=== PATIENT | male | born 1985 | race Caucasian/White ===

== ENCOUNTER 2021-06-29 16:33 | Emergency (ER) | payer SELFPAY ==
--- NOTE | ~2021-06-29 | CT_ITS ---
EXAMINATION: CT abdomen pelvis wo con DATE: 06/29/2021 19:04 INDICATION: Left flank pain. TECHNIQUE: Computed tomography (CT) of the abdomen and pelvis was performed without intravenous contr ast. The dose-length product was 400.57 mGy-cm. Automated exposure control and iterative reconstructi on technique were employed. COMPARISON: None. FINDINGS: Lung bases unremarkable. Heart size normal. No significant pleural or pericardial effusion. No significant vascular abnormality. No lymphadenopathy. The liver, spleen, pancreas, adrenal glands and kidneys are unremarkable. There is mild left periuret eral stranding. No renal/ureteral stones or hydronephrosis. Bladder is unremarkable. Nonobstructive b owel gas pattern. Colonic diverticulosis without evidence for diverticulitis. Normal appendix. No sharlene e air or free fluid. No acute osseous abnormality. IMPRESSION: 1. Mild left periureteral stranding which may be sequela of recently passed stone or ascending urinar y tract infection. Reviewed, dictated and finalized at location A. IMPRESSION: 1. Mild left periureteral stranding which may be sequela of recently passed sto ne or ascending urinary tract infection.
[2021-06-29 17:52] VITALS: BP 157/95; PULSE 85; RESP 18; TEMP 36.4; O2SAT 100
[2021-06-29 18:06] LABS: Basophils Absolute Auto 0.1 K/mm3 (0.0-0.1); Basophils Percent Auto 0.6 % (0.2-1.2); Eosinophils Absolute Auto 0.1 K/mm3 (0-0.3); Eosinophils Percent Auto 0.4 % (0-4.4); Hematocrit 46.6 % (42.0-52.0); Immature Granulocyte Absolute 0.02 K/mm3 (0.00-0.031); Immature Granulocyte Percent A 0.2 % (0-0.5); Lymphocytes Absolute Auto 1.49 K/mm3 (0.9-3.2); Lymphocytes Percent Auto 12.2 % (18.3-44.2); Mean Corpuscular HGB Conc 34.3 g/dl (32-36); Mean Corpuscular Hemoglobin 30.1 pg (26-34); Mean Corpuscular Volume 87.6 fl (80-100); Mean Platelet Volume 9.2 fl (7.4-10.4); Monocytes Absolute Auto 0.6 K/mm3 (0.1-0.6); Neutrophils Percent Auto 81.6 % (45.5-73.1); Platelet Count Result 268 k/mm3 (150-375); Red Blood Count 5.32 M/mm3 (4.6-6.20); Red Cell Distribution Width 12.7 % (11.5-14.5); White Blood Count 12.2 K/mm3 (4.5-10.0)
--- NOTE | 2021-06-29 18:21 | PC.NURSE ---
Xray here to take pt, but pt is not in waiting room.
--- NOTE | 2021-06-29 18:24 | PC.NURSE ---
Pt back into ED
[2021-06-29 18:38] LABS: Add Urine Microscopic? YES; Amorphous Sediment Urine Few; Appearance Urine Cloudy (Clear); Bilirubin Urine Negative (Negative); Blood Urine Negative (Negative); Color Urine Yellow (Yellow); Glucose Urine UA Negative (Negative); Ketones Urine Negative (Negative); Leukocyte Esterase Ur Negative LEU/UL (Negative); Nitrate Urine Negative (Negative); Protein Urine Negative (Negative); Specific Grav Ur 1.021 (1.001-1.035); Urobilinogen Urine Negative mg/dL (<2.0); WBC Urine 0-3 /hpf
[2021-06-29 18:41] VITALS: BP 158/94; PULSE 100; RESP 16; O2SAT 98
[2021-06-29 18:51] LABS: Alanine Aminotransferase 42 U/L (4-50); Albumin Level 4.7 g/dL (3.5-5.1); Alkaline Phosphatase 95 U/L (38-126); Anion Gap 9 mmol/L (8-16); Aspartate Amino Transferase 33 U/L (17-59); Bilirubin,Total 0.3 mg/dL (0.2-1.3); Blood Urea Nitrogen 21 mg/dL (9-20); Calcium 10.1 mg/dL (8.4-10.2); Carbon Dioxide 26 mmol/L (22-30); Chloride 104 mmol/L (98-107); Estimated CRCL calculation 67 ml/min; Estimated Glomerular Filt Rate 57; Glucose 128 mg/dL (65-110); Lipase 52 U/L (23-300); Potassium 4.6 mmol/L (3.4-5.0); Sodium 139 mmol/L (137-145)
[2021-06-29 19:30] VITALS: BP 146/78; PULSE 78; RESP 16; O2SAT 99
--- NOTE | 2021-06-29 20:39 | PC.NURSE ---
Went into check on PT- pt had eloped prior to discharge. ERP aware .
--- NOTE | 2021-06-29 21:34 | ED.ABDPAIN ---
HPI - Abdominal Pain General Chief Complaint: Abdominal Pain Stated Complaint: left lower ABD pain - 2 hours ago Time Seen by Provider: 06/29/21 18:55 Source: patient Mode of arrival: ambulatory Limitations: no limitations History of Present Illness HPI narrative: 36-year-old male Here for left-sided flank and abdominal pain Patient said he was helping a elderly neighbor around the house and started having pretty severe pain in his left lateral back and flank earlier today He had some nausea, but no vomiting or diarrhea, no hematuria or dysuria Nothing seems to make it better or worse Patient reported that the pain gradually radiated anteriorly into the groin and pretty much resolved while he was in the waiting room and at this time he is asymptomatic Related Data Home Medications Medication Instructions Recorded Confirmed No Home Medications 06/29/21 06/29/21 Allergies Allergy/AdvReac Type Severity Reaction Status Date / Time No Known Allergies Allergy Mild Verified 06/29/21 18:40 Review of Systems Review of Systems: All systems reviewed & are unremarkable except as noted in HPI and below Constitutional: Constitutional: Reports no additional constitutional complaints, Denies chills, Denies fever(s) and Denies headache(s) Eyes: Eyes: Reports no additional eye complaints and Denies change in vision ENT: Denies headache(s) and Denies sore throat Cardiovascular: Cardiovascular: Denies chest pain and Denies dyspnea Respiratory: Respiratory: Denies cough and Denies dyspnea Gastrointestinal: Gastrointestinal: Reports abdominal pain, Denies diarrhea, Reports nausea and Denies vomiting Genitourinary: Genitourinary: Denies hematuria, Denies dysuria and Denies urinary frequency Musculoskeletal: Musculoskeletal: Reports back pain, Denies deformity, Denies arthralgias, Denies joint swelling and Denies numbness Integumentary/Breasts: Skin/Breast: Denies rash and Denies wounds Neurologic: Denies headache(s), Denies focal weakness and Denies numbness Psychiatric: Psychiatric: Reports no additional psychiatric complaints Endocrine: Endocrine: Reports no additional endocrine complaints Hematologic/Lymphatic: Hematologic/Lymphatic: Reports no additional hematologic/lymphatic complaints Allergic/Immunologic: Allergic/Immunologic: Reports no additional allergic/immunologic complaints Exam Const: General: cooperative and no acute distress Orientation/consciousness: patient oriented x3 (alert) HENMT: Head: normal to inspection, normocephalic and atraumatic Ears: external ears normal General nose exam: no epistaxis Eyes: Conjunctivae: conjunctivae normal EOM: EOMs intact bilaterally Neck: Neck: normal visual inspection, supple and no JVD Resp: Effort & Inspection: normal respiratory effort and not labored Auscultation: other (BS =) GI: GI Palp: Yes Soft to palpation, No Tenderness to palpation present (GI) and No Guarding due to palpation present (GI) : General: Yes no CVA tenderness Skin: General skin exam: normal color and no rashes or lesions noted Neuro: General: patient oriented x3 (alert) and moves all extremities Speech: normal speech Course Course Emergency Course: Reviewed the results of all his studies with the patient, likely he passed a kidney stone, and discussed to improve hydration to avoid further episodes Patient unfortunately left without his discharge directions or a follow-up referral Vital Signs Vital signs: Vital Signs Temperature 36.4 C 06/29/21 17:52 Pulse Rate 85 06/29/21 17:52 Respiratory Rate 18 06/29/21 17:52 Blood Pressure 157/95 H 06/29/21 17:52 Pulse Oximetry 100 06/29/21 17:52 Temperature 36.4 C 06/29/21 17:52 Pulse Rate 78 06/29/21 19:30 Respiratory Rate 16 06/29/21 19:30 Blood Pressure 146/78 H 06/29/21 19:30 Pulse Oximetry 99 06/29/21 19:30 MDM - Abdominal Pain Lab Data Attestation: I reviewed the patient's lab resul
== END 2021-06-29 20:39 | disposition home or self-care (01) ==
PROVIDERS: Emergency Medicine; Emergency Provider Emergency Medicine
DX: N23 Unspecified renal colic (principal)
CPT/HCPCS: 36415; 74176; 80053; 81001; 83690; 85025; 99284

== ENCOUNTER 2022-03-02 18:53 | Emergency (ER) | payer OTHER, SELFPAY ==
--- NOTE | ~2022-03-02 | CT_ITS ---
EXAMINATION: CT abdomen pelvis wo con DATE: 03/02/2022 20:09 INDICATION: left flank pain, hx kidney stones TECHNIQUE: Computed tomography (CT) of the abdomen and pelvis was performed without intravenous contr ast. Automated exposure control and iterative reconstruction technique were employed. The dose-length product was 288.79 mGy-cm. COMPARISON: 06/29/2021. FINDINGS: Lower thorax: Unremarkable Liver: Normal. Biliary/Gallbladder: Gallbladder is normal. No bile duct dilation. Pancreas: No mass or duct dilation. Spleen: Normal. Adrenals:No mass. Kidneys: No mass, stone, or hydronephrosis. GI tract: No small or large bowel dilation. Normal appendix. Diverticulosis without diverticulitis. Mesentery/Peritoneum: No ascites, mass, or free air. Retroperitoneum: No mass. Minimal atherosclerotic abdominal aortic and/or arterial calcifications. Pelvis: No distal collecting system obstruction or stone. The bladder is decompressed. Mild inflammat ory change about the seminal vesicles in the fat of the deep pelvis. Soft Tissues: Soft tissues and body wall unremarkable. Bones: No acute osseous finding. IMPRESSION: Inflammatory change about the seminal vesicles and the pelvic fat may reflect seminal vesiculitis in the appropriate clinical context. No CT evidence of nephrolithiasis or obstructive uropathy. Reviewed, dictated and finalized at location K. IMPRESSION: Inflammatory change about the seminal vesicles and the pelvic fat may reflect s eminal vesiculitis in the appropriate clinical context. No CT evidence of nephr olithiasis or obstructive uropathy.
--- NOTE | ~2022-03-02 | US_ITS ---
EXAMINATION: US scrotum doppler DATE: 03/02/2022 20:57 INDICATION: Left testicular pain and swelling TECHNIQUE: Grayscale and Doppler ultrasound images of the testes were obtained. COMPARISON: CT abdomen and pelvis, same date. FINDINGS: The right testis measures 4.2 x 2.0 x 2.4 cm. The left testis measures 3.7 x 2.1 x 2.9 cm. There is increased vascularity of the left testicle. The 9 mm right epididymis is normal with normal vascular flow. The diffusely enlarged left epididymis has increased vascular flow. Bilateral microlit hiasis. No finding to suggest intratesticular or scrotal abscess. Moderate volume left hydrocele. No varicoceles. IMPRESSION: 1. Left epididymoorchitis. 2. Moderate volume left hydrocele. Reviewed, dictated and finalized at location K.
[2022-03-02 18:55] VITALS: BP 144/81; PULSE 112; RESP 17; TEMP 36.6; O2SAT 100
[2022-03-02 19:33] VITALS: BP 136/88; PULSE 104; RESP 16; O2SAT 100
[2022-03-02 19:44] LABS: Basophils Absolute Auto 0.1 K/mm3 (0.0-0.1); Basophils Percent Auto 0.4 % (0.2-1.2); Eosinophils Absolute Auto 0.2 K/mm3 (0-0.3); Eosinophils Percent Auto 1.1 % (0-4.4); Hematocrit 50.2 % (42.0-52.0); Hemoglobin 16.7 g/dL (14.0-18.0); Immature Granulocyte Absolute 0.09 K/mm3 (0.00-0.031); Immature Granulocyte Percent A 0.5 % (0-0.5); Lymphocytes Absolute Auto 2.41 K/mm3 (0.9-3.2); Lymphocytes Percent Auto 12.8 % (18.3-44.2); Mean Corpuscular HGB Conc 33.3 g/dl (32-36); Mean Corpuscular Hemoglobin 28.8 pg (26-34); Mean Corpuscular Volume 86.6 fl (80-100); Mean Platelet Volume 8.9 fl (7.4-10.4); Monocytes Absolute Auto 1.8 K/mm3 (0.1-0.6); Monocytes Percent Auto 9.7 % (2.6-8.5); Neutrophils Absolute Auto 14.3 K/mm3 (1.3-6.7); Neutrophils Percent Auto 75.5 % (45.5-73.1); Platelet Count Result 344 k/mm3 (150-375); Red Cell Distribution Width 12.8 % (11.5-14.5); White Blood Count 18.9 K/mm3 (4.5-10.0)
[2022-03-02 19:50] LABS: Appearance Urine Slightly Cloudy (Clear); Bilirubin Urine 1+ (Negative); Color Urine Yellow (Yellow); Glucose Urine UA Negative (Negative); Ketones Urine Trace mg/dL (Negative); Leukocyte Esterase Ur 3+ LEU/UL (Negative); Nitrate Urine Negative (Negative); Protein Urine 2+ mg/dL (Negative); Specific Grav Ur 1.025 (1.001-1.035)
[2022-03-02 19:51] LABS: Lactic Acid Reflex 1.9 mmol/L (0.7-2.0)
[2022-03-02 19:52] LABS: Alanine Aminotransferase 36 U/L (6-50); Albumin Level 4.7 g/dL (3.5-5.1); Alkaline Phosphatase 127 U/L (38-126); Anion Gap 11 mmol/L (8-16); Aspartate Amino Transferase 34 U/L (17-59); Bilirubin,Total 0.8 mg/dL (0.2-1.3); Blood Urea Nitrogen 20 mg/dL (9-20); Calcium 9.5 mg/dL (8.4-10.2); Carbon Dioxide 27 mmol/L (22-30); Chloride 101 mmol/L (98-107); Estimated CRCL calculation 72 ml/min; Estimated Glomerular Filt Rate > 60; Glucose 86 mg/dL (65-110); Lipase 54 U/L (23-300); Potassium 3.4 mmol/L (3.4-5.0); Sodium 139 mmol/L (137-145)
[2022-03-02 19:57] LABS: Add Urine Microscopic? YES; Blood Urine Trace-Intact (Negative)
--- NOTE | 2022-03-02 19:59 | PC.NURSE ---
Pt to CT via wheelchair at this time.
[2022-03-02 20:01] LABS: Bacteria Urine Trace /hpf; Mucus Urine Few /lpf; WBC Urine >75 /hpf
[2022-03-02] MEDS: SODIUM CHLORIDE 0.9% IV 1,000 ML 999 ML IV CONT (20:10)
--- NOTE | 2022-03-02 20:11 | ED.MALEGU ---
HPI - Male Genitourinary General Chief complaint: Urogenital-Male <Snow Ferguson PA-C - Last Filed: 03/02/22 22:32> Stated complaint: hematuria <RAMÍREZ Mena Last Filed: 03/02/22 22:32> Time Seen by Provider: 03/02/22 19:06 <RAMÍREZ Mena Last Filed: 03/02/22 22:32> Source: patient <RAMÍREZ Mena Last Filed: 03/02/22 22:32> Mode of arrival: ambulatory <RAMÍREZ Mena Last Filed: 03/02/22 22:32> Limitations: no limitations <RAMÍREZ Mena Last Filed: 03/02/22 22:32> History of Present Illness HPI Narrative: This is a 36-year-old male that presents to the emergency department for left flank pain. Ongoing over the last week. Associated with hematuria. Reports yesterday he started to note swelling and pain of the left testicle which worsened today and prompted him to be seen. Reports redness to the scrotum. Reports he had a fever yesterday. Denies vomiting, or dysuria. <Snow Ferguson PA-C - Last Filed: 03/02/22 22:32> Related Data Allergies/Adverse reactions: Allergies Allergy/AdvReac Type Severity Reaction Status Date / Time No Known Allergies Allergy Mild Verified 03/02/22 20:20 <Snow Ferguson PA-C - Last Filed: 03/02/22 22:32> Review of Systems Review of Systems: CONSTITUTIONAL: Denies fever GASTROINTESTINAL: Reports abdominal pain, nausea, vomiting GENITOURINARY: Reports hematuria. Denies dysuria <RAMÍREZ Mena Last Filed: 03/02/22 22:32> All systems reviewed & are unremarkable except as noted in HPI and below <RAMÍREZ Mena Last Filed: 03/02/22 22:32> [facility] Past Medical History Medical History: Medical History (Updated 03/03/22 @ 00:01 by Reva Hoang) No active medical problems <RAMÍREZ Mena Last Filed: 03/02/22 22:32> Social History Social History: Social History (Updated 03/02/22 @ 22:24 by Snow Ferguson PA-C) Substance use: current Substance use type: amphetamines <Snow Ferguson PA-C - Last Filed: 03/02/22 22:32> Exam Narrative: GENERAL: Well-appearing, well-nourished, and in no acute distress. HEAD: Normocephalic, atraumatic. EYES: EOMI. CHEST: Clear to auscultation. No respiratory distress. No wheezes rales or rhonchi HEART: Regular rate and rhythm. No murmur heard. Normal peripheral pulses. ABDOMEN: Soft, nontender, nondistended, normal active bowel sounds. No CVA tenderness EXTREMITIES: Normal range of motion. No edema. SKIN: Warm, dry, no rash. NEURO: No focal deficits. Alert and oriented x3. PSYCH: Normal mood and affect MALE GENITAL: Mild to moderate edema of the left testicle with mild overlying redness of the scrotum. No abnormal urethral discharge or other rashes/lesions noted <Snow Ferguson PA-C - Last Filed: 03/02/22 22:32> Course TAX INVESTIGATOR/PA Physician Supervision I did not see this patient but the care plan was discussed with me, labs and imaging reviewed I agree with the documentation as above <Joey Medina MD - Last Filed: 03/03/22 11:54> Consultations Consultation #1: Spoke with Dr. Cao about patient and workup who agrees with Rocephin and doxycycline. Follow-up in clinic <Snow Ferguson PA-C - Last Filed: 03/02/22 22:32> Date: 03/02/22 <Snow Ferguson PA-C - Last Filed: 03/02/22 22:32> Vital Signs Vital signs: Vital Signs Temperature 36.6 C 03/02/22 18:55 Pulse Rate 112 H 03/02/22 18:55 Respiratory Rate 17 03/02/22 18:55 Blood Pressure 144/81 H 03/02/22 18:55 Pulse Oximetry 100 03/02/22 18:55 Oxygen Delivery Room Air 03/02/22 18:55 Temperature 36.6 C 03/02/22 18:55 Pulse Rate 81 03/02/22 22:43 Respiratory Rate 16 03/02/22 22:43 Blood Pressure 134/83 03/02/22 22:43 Pulse Oximetry 100 03/02/22 22:43 Oxygen Delivery Room Air 03/02/22 18:55 <Snow Ferguson PA-C - Last Filed: 03/02/22 22:32> Vital Signs Temperature 36.
[2022-03-02] MEDS: ONDANSETRON INJ 4 MG/2 ML VIAL IV PUSH (20:20)
[2022-03-02] MEDS: MORPHINE SULFATE (*CRX) 2 MG/ML INJ IV PUSH (20:22)
[2022-03-02 21:35] VITALS: BP 130/86; PULSE 82; RESP 14; O2SAT 97
[2022-03-02] MEDS: cefTRIAXone 1 GM VIAL 0.5 GM IM (21:44)
[2022-03-02] MEDS: LIDOCAINE HCL 1% PF 30 ML VIAL (21:45)
[2022-03-02] MEDS: DOXYCYCLINE HYCLATE 100 MG TABLET PO (22:14)
[2022-03-02 22:43] VITALS: BP 134/83; PULSE 81; RESP 16; O2SAT 100
== END 2022-03-02 22:44 | disposition home or self-care (01) ==
PROVIDERS: Physician Assistant; Emergency Provider Emergency Medicine
DX: N45.3 Epididymo-orchitis (principal)
CPT/HCPCS: 36415; 74176; 76870; 80053; 81001; 83605; 83690; 85025; 87086; 87491; 87591; 87661; 93976; 96361; 96372; 96374; 96375; 99284; A9270; J0696; J2270; J2405; J7030